=== PATIENT | female | born 1945 | race Caucasian/White ===

== ENCOUNTER 2017-09-17 05:57 | Inpatient (IN) | payer OTHER, BC ==
[2017-09-09 13:23] VITALS: BMI 33.1
[2017-09-17] MEDS ORDERED: TRANEXAMIC ACID 1000 MG/10 ML VIAL IVPUSH ONE (06:18)
[2017-09-17] MEDS ORDERED: oxyCODONE HCL 10 MG SUSTAINED ACTING TABLET PO ONE (06:18)
[2017-09-17] MEDS ORDERED: ROPIVICAINE 0.2%/MORPH PF/KETOROLAC - 51ML DISP.SYRINGE IA ONE (06:18)
[2017-09-17] MEDS ORDERED: MIDAZOLAM HCL 2 MG/2 ML SINGLE DOSE VIAL ONE ×2 (06:46→08:10)
[2017-09-17] MEDS ORDERED: SODIUM CHLORIDE 0.9% P/F 10 ML VIAL IJ ONE (06:47)
[2017-09-17] MEDS ORDERED: BUPIVACAINE LIPOSOME/PF (EXPAREL) 266 MG/20 ML VIAL ONE (06:47)
[2017-09-17] MEDS ORDERED: BUPIVACAINE HCL/PF (5 MG/ML) 30 ML VIAL IJ ONE (06:47)
--- NOTE | 2017-09-17 07:09 | HP ---
History & Physical Update - History History: No Change - Physical Physical: No Change - Assessment Assessment: No Change - Plan Plan: No Change (Initial H&P is located in patient's paper chart. Her today for elective bilateral knee replacements (primary OA). No new complaints or medications since completing H&P.)
[2017-09-17] MEDS ORDERED: PROPOFOL 20 ML ONE ×6 (08:46→12:08)
[2017-09-17] MEDS ORDERED: ePHEDrine SULFATE 50 MG/1 ML AMPULE ONE (11:54)
[2017-09-17] MEDS ORDERED: TRANEXAMIC ACID 1000 MG/10 ML VIAL ONE ×2 (12:38)
--- NOTE | 2017-09-17 13:41 | OP ---
Operative Note - Note: Operative Date: 09/17/17 Pre-Operative Diagnosis: Osteoarthritis Operation: SILVIA bilateral knee replacements Post-Operative Diagnosis: Same as Pre-op Surgeon: Jean-Pierre Huddleston Veterinary Physiologist: Yonatan Flores Anesthesia: Spinal Estimated Blood Loss (mls): 100 Drains & Tubes with Location: hemovac x2 Drains, Volume Out (mls): 400 (marquis) Fluid Volume Replaced (mls): 2,300 Operative Report Dictated: Yes
[2017-09-17] MEDS ORDERED: ONDANSETRON 4 MG/2 ML VIAL IVPUSH PRN ×2 (13:43→13:50)
[2017-09-17] MEDS ORDERED: MAG HYDROX/AL HYDROX/SIMETH 30 ML UNIT-DOSE CUP PO PRN (13:43)
--- NOTE | 2017-09-17 13:43 | SURG ---
Surgery Exhibitions And Collections Manager Note Exhibitions And Collections Manager: Yonatan Flores PA-C Date of Service: 09/17/17 Diagnosis: Osteoarthritis Procedure: Bo bilateral total knee replacements I was present for the entirety of the operative procedure. For further detail, please refer to operative report. Visit type - Case Type Case Type: Scheduled - New patient This patient is new to me today: Yes Date on this admission: 09/17/17
[2017-09-17] MEDS ORDERED: LACTATED RINGERS SOLUTION 1,000 ML IV SCH (13:45)
[2017-09-17] MEDS ORDERED: oxyCODONE HCL 5 MG TABLET PO PRN (13:51)
[2017-09-17] MEDS ORDERED: ACETAMINOPHEN 325 MG TABLET (FP) PO ONE (14:30)
[2017-09-17] MEDS: ACETAMINOPHEN 1000 MG/100 ML VIAL (NON FORMULARY) IVPB SCH ×2 (16:44→21:00)
[2017-09-17] MEDS: CEFAZOLIN 2 GM/D5W 2 GM/50 ML ML IVPB SCH (18:12)
[2017-09-17] MEDS ORDERED: ACETAMINOPHEN 325 MG TABLET (FP) PO SCH (18:30)
--- NOTE | 2017-09-17 20:56 | OP ---
DATE OF OPERATION: 09/17/2017 PREOPERATIVE DIAGNOSIS: Bilateral knee arthritis. POSTOPERATIVE DIAGNOSIS: Bilateral knee arthritis. OPERATION PERFORMED: Bilateral total knee arthroplasty with SILVIA assistance. SURGEON: Jean-Pierre Ewing MD ASSURANCE SPECIALIST: MARISEL Tam TYPE OF ANESTHESIA: Spinal and block. DISPOSITION: Patient returned to the recovery room in stable condition. COMPONENTS USED: On both sides, we used a size 4 Sondra Triathlon femur, a size 4 Benjamin Triathlon universal tibia, and a 29-mm patella. On the left side, we used an 11-mm PS insert, and on the right side, we used a 9-mm PS insert. DRAINS PLACED: One Hemovac each side. ESTIMATED BLOOD LOSS: Less than 50 mL each side. TOTAL TOURNIQUET TIME: On the left was 119 minutes; on the right was 110 minutes. PREOPERATIVE CONTRACTURE: 10 degrees on both sides. FINDINGS: Severe end-stage arthritis. INDICATIONS: Patient failed nonoperative treatment for bilateral knee arthritis and was indicated for bilateral total knee replacement. Preoperatively in the waiting area as well as in the operative site, a long discussion with the patient regarding the plan, the expected outcome, and the risks, benefits, and alternatives of surgery. The risks included, but were not limited to infection which may require future surgery and removal of implants, bleeding which may require transfusion, damage to nerves, arteries, veins, tendons, muscles, and other adjacent structures leading to possible numbness, weakness, decreased function and/or possible need for surgical repair. Also discussed were the possibility of intraoperative and postoperative fractures, implant loosening, stiffness, need for extensive therapy, and need for revision for a variety of reasons. We also discussed blood clots and other possible medical complications. We also discussed that doing both knees at the same time places her at increased risk for several complications including blood clots, bleeding, needing for transfusion, and difficult recovery. All questions were answered, and consent was obtained. PROCEDURE IN DETAIL: Patient was taken to the operating room and placed on the operating table in the supine position. Following induction of spinal anesthesia, well-padded tourniquets were placed high on both sides, and both lower extremities were prepped and draped in a sterile fashion. A timeout was performed that confirmed the correct sides, verified that the sites were marked, and confirmed the correct patient and procedures to be performed, as well that the patient received the appropriate preoperative antibiotics and tranexamic acid and was registered in the [employer] robot. The identical procedure was performed on both sides, only difference being the tourniquet times noted above and the insert sides noted above. Tourniquet was elevated, followed by a midline incision and a medial parapatellar arthrotomy. The checkpoints were placed in the femur and tibia through stab incisions, and after blunt dissection, the arrays were placed on the tibia and the femur. The patient was then verified and registered in the computer. The plan was adjusted according to patient's anatomy and alignment, and we then made all of our cuts using the [employer] robot while protecting the surrounding soft tissues. A laminar bisque ware dipper was placed sequentially in the medial and lateral joint spaces. Posterior osteophytes, cruciate ligaments, and menisci were all excised. We then placed trials of our final sizes after cutting the box, and there was good stability, range of motion, soft tissue tension, and patellar tracking with our trials of our final sizes. We then measured the patella on both sides to be 23. We cut off 8.25 using a guide. We reconstructed both patella with a 29-mm button and performed lateral double cuts. When the patella trial was in place, the patellar tracked centrally. There was good stability, soft tissue tension, and range of motion, and we verified our final alignment in accordance with our preoperative plan with the robot. The tibia was punched, and the trials were then removed. The wound was copiously irrigated, and sequential cementation was performed starting with the tibia and then the femur. Excess cement was removed. We inserted the final polyethylene, and it seated flush. The knee was brought to full extension to allow the cement to harden. We made sure excess cement was removed. After a 3-minute soak with a diluted Betadine solution, the knee was copiously irrigated. Our injection was then injected. A deep drain was placed. We checked for excess cement. The arthrotomy was closed with number 1 Vicryl and 0 V-Loc. With the arthrotomy closed, there was good stability, range of motion, soft tissue tension, and the patella tracked centrally. An anesthetic cocktail had already been injected. Next, 2-0 Vicryl and saeed were used for the skin. The knee was wrapped in a dry, sterile compressive dressing. The tourniquet was released. Compartments were soft at the end of the procedure. Pulses were palpated, and the patient was returned to the recovery room in stable condition, will be mobilized weightbearing as tolerated. WOUND CLASSIFICATION: Clean. SPECIMENS: Bone. COMPLICATIONS: None known. Of note, we removed the checkpoints and arrays prior to closure. JEAN-PIERRE EWING M.D. [facility]/[id number]
[2017-09-17] MEDS: ATORVASTATIN CA 10 MG TABLET (FP) PO SCH (21:28)
[2017-09-17] MEDS: GABAPENTIN 300 MG CAPSULE (FP) PO SCH (21:28)
[2017-09-17] MEDS: ASPIRIN 325 MG TABLET PO SCH (21:28)
[2017-09-17] MEDS: ACETAMINOPHEN 325 MG TABLET (FP) PO SCH (21:28)
[2017-09-17] MEDS: ASCORBIC ACID 500 MG TABLET (FP) PO SCH (21:28)
[2017-09-17] MEDS: LISINOPRIL 20 MG TABLET (FP) PO SCH (21:28)
[2017-09-17] MEDS: HYDROCHLOROTHIAZIDE 12.5 MG CAPSULE (FP) PO SCH (21:28)
[2017-09-17] MEDS: SENNOSIDES/DOCUSATE COMBO (SENNA PLUS) TABLET (UD) PO SCH (21:28)
[2017-09-17] MEDS: oxyCODONE HCL 10 MG SUSTAINED ACTING TABLET PO SCH (21:29)
[2017-09-17] MEDS ORDERED: ENOXAPARIN NA (PORCINE) 30 MG/0.3 ML DISP.SYRIN SQ SCH (22:00)
[2017-09-17] MEDS ORDERED: PATIENT'S OWN MEDICATION (NON-FORMULARY) (Lisinopril/Hydrochlorothiazide [Lisinopril-Hctz PO SCH (22:00)
[2017-09-18] MEDS: CEFAZOLIN 2 GM/D5W 2 GM/50 ML ML IVPB SCH (00:20)
[2017-09-18] MEDS: ACETAMINOPHEN 1000 MG/100 ML VIAL (NON FORMULARY) IVPB SCH (03:30)
[2017-09-18] MEDS: ACETAMINOPHEN 325 MG TABLET (FP) PO SCH ×4 (03:30→21:31)
[2017-09-18] MEDS ORDERED: LEVOTHYROXINE NA 112 MCG TABLET (FP) ONE (07:15)
[2017-09-18] MEDS ORDERED: LEVOTHYROXINE NA 25 MCG TABLET (FP) ONE (07:15)
[2017-09-18] MEDS: LEVOTHYROXINE 112 MCG, LEVOTHYROXINE 25 MCG PO SCH (07:19)
--- NOTE | 2017-09-18 08:05 | PN ---
Progress Note (short form) - Note Progress Note: Patient seen and examined. No acute events. Pain controlled. Vitals reviewed and stable No acute distress A and Ox3 BL drains removed by me Dressings dry compartments soft NVID A/P: POD#1 s/p bl tka -dvt proph w asa and mechanical -pt/ot wbat -pain control -dispo: likely Acute rehab at [place] wednesday if approved.
[2017-09-18 08:11] LABS: HEMOGLOBIN 9.6 GM/dl (10.7-15.3); MCH 32.1 pg (25.7-33.7); MCHC 34.3 g/dl (32.0-36.0); MEAN CELL VOLUME 93.6 fl (80-96); MEAN PLT VOLUME 7.2 fl (7.5-11.1); PLATELET COUNT 190 K/MM3 (134-434); RBC 2.99 M/mm3 (3.60-5.2); RDW 13.7 % (11.6-15.6); WHITE BLOOD COUNT 6.8 K/mm3 (4.0-10.8)
[2017-09-18 08:39] LABS: ANION GAP 8 (8-16); BLOOD UREA NITROGEN 24 mg/dl (7-18); CALCIUM 8.1 mg/dl (8.4-10.2); CHLORIDE 99 mmol/L (98-107); CO2 25 mmol/L (22-28); CREATININE 0.9 mg/dl (0.6-1.3); GLUCOSE,RANDOM 152 mg/dl (74-106); POTASSIUM 3.7 mmol/L (3.5-5.1); SODIUM 132 mmol/L (136-145)
[2017-09-18 09:47] LABS: BASO % 0.2 % (0-2.0); EOS % 0.9 % (0-4.5); HEMATOCRIT 27.4 % (32.4-45.2); HEMOGLOBIN 9.6 GM/dl (10.7-15.3); MCH 32.5 pg (25.7-33.7); MCHC 34.9 g/dl (32.0-36.0); MEAN CELL VOLUME 93.1 fl (80-96); MEAN PLT VOLUME 8.3 fl (7.5-11.1); NEUT % 77.9 % (42.8-82.8); PLATELET COUNT 184 K/MM3 (134-434); RBC 2.94 M/mm3 (3.60-5.2); WHITE BLOOD COUNT 6.9 K/mm3 (4.0-10.8)
[2017-09-18 09:52] LABS: ALBUMIN 3.2 g/dl (3.5-5.0); ALK PHOS 47 U/L (32-92); ANION GAP 9 (8-16); BILIRUBIN,TOTAL 0.6 mg/dl (0.2-1.0); BLOOD UREA NITROGEN 23 mg/dl (7-18); CHLORIDE 99 mmol/L (98-107); CO2 24 mmol/L (22-28); CREATININE 0.9 mg/dl (0.6-1.3); GLUCOSE,RANDOM 150 mg/dl (74-106); MAGNESIUM 1.6 mg/dL (1.8-2.4); POTASSIUM 3.8 mmol/L (3.5-5.1); SGOT/AST 24 U/L (10-42); SGPT/ALT 19 U/L (10-40); SODIUM 132 mmol/L (136-145); TOT PROT 5.1 g/dl (6.4-8.3)
[2017-09-18] MEDS ORDERED: MULTIVITAMINS (DAILY MVI) TABLET (FP) PO SCH (10:00)
[2017-09-18] MEDS ORDERED: PATIENT'S OWN MEDICATION (NON-FORMULARY) (Levothyroxine Sodium [Synthroid] 137 MCG) PO SCH (10:00)
[2017-09-18] MEDS: ASPIRIN 325 MG TABLET PO SCH ×2 (10:03→21:32)
[2017-09-18] MEDS: CELECOXIB 200 MG CAPSULE PO SCH (10:03)
[2017-09-18] MEDS: oxyCODONE HCL 10 MG SUSTAINED ACTING TABLET PO SCH ×2 (10:04→21:33)
[2017-09-18] MEDS: HYDROCHLOROTHIAZIDE 12.5 MG CAPSULE (FP) PO SCH ×2 (10:04→21:32)
[2017-09-18] MEDS: LISINOPRIL 20 MG TABLET (FP) PO SCH ×2 (10:04→21:32)
[2017-09-18] MEDS: SENNOSIDES/DOCUSATE COMBO (SENNA PLUS) TABLET (UD) PO SCH ×2 (10:04→21:33)
[2017-09-18] MEDS: GABAPENTIN 300 MG CAPSULE (FP) PO SCH ×2 (10:04→21:32)
[2017-09-18] MEDS: PANTOPRAZOLE 40 MG TABLET (FP) PO SCH (10:05)
[2017-09-18] MEDS: oxyCODONE HCL 5 MG TABLET PO PRN (10:05)
[2017-09-18] MEDS: MULTIVITAMINS (DAILY MVI) TABLET (FP) PO SCH (10:05)
[2017-09-18] MEDS: ASCORBIC ACID 500 MG TABLET (FP) PO SCH ×2 (10:06→21:32)
[2017-09-18] MEDS: CHOLECALCIFEROL (VITAMIN D3) 1,000 UNIT TABLET (FP) PO SCH (10:06)
[2017-09-18] MEDS ORDERED: MAGNESIUM OXIDE 400 MG TABLET (FP) PO ONE (11:10)
--- NOTE | 2017-09-18 11:10 | PN ---
Physical Exam: SUBJECTIVE: Patient seen and examined at the bedside. In no acute distress OBJECTIVE: Vital Signs Period Temp Pulse Resp BP Sys/Machuca Pulse Ox Last 24 Hr 93.9 F-98.1 F 56-71 16-18 93-136/46-66 98-100 GENERAL: The patient is awake, alert, and fully oriented, in no acute distress. HEAD: Normal with no signs of trauma. EYES: PERRL, extraocular movements intact, sclera anicteric, conjunctiva clear. No ptosis. ENT: Ears normal, nares patent, oropharynx clear without exudates, moist mucous membranes. NECK: Trachea midline, full range of motion, supple. LUNGS: Breath sounds equal, clear to auscultation bilaterally, no wheezes, no crackles, no accessory muscle use. HEART: Regular rate and rhythm ABDOMEN: Soft, nontender, nondistended, normoactive bowel sounds, no guarding EXTREMITIES: She is POD #1 for bilateral TKA. She is awaiting rehab at [facility]. NEUROLOGICAL: Cranial nerves II through XII grossly intact. Normal speech, gait not observed. PSYCH: Normal mood, normal affect. SKIN: Warm, dry, normal turgor, no rashes or lesions noted Laboratory Results - last 24 hr 09/18/17 09/18/17 09/18/17 08:00 08:00 09:30 WBC 6.8 6.9 RBC 2.99 L 2.94 L Hgb 9.6 L 9.6 L Hct 28.0 L 27.4 L MCV 93.6 93.1 MCH 32.1 32.5 MCHC 34.3 34.9 RDW 13.7 13.0 Plt Count 190 184 MPV 7.2 L 8.3 Neutrophils % 77.9 Lymphocytes % 12.0 Monocytes % 9.0 Eosinophils % 0.9 Basophils % 0.2 Sodium 132 L Potassium 3.7 Chloride 99 Carbon Dioxide 25 Anion Gap 8 BUN 24 H Creatinine 0.9 Creat Clearance w eGFR Random Glucose 152 H Calcium 8.1 L Magnesium Total Bilirubin AST ALT Alkaline Phosphatase Total Protein Albumin 09/18/17 09:30 WBC RBC Hgb Hct MCV MCH MCHC RDW Plt Count MPV Neutrophils % Lymphocytes % Monocytes % Eosinophils % Basophils % Sodium 132 L Potassium 3.8 Chloride 99 Carbon Dioxide 24 Anion Gap 9 BUN 23 H Creatinine 0.9 Creat Clearance w eGFR > 60 Random Glucose 150 H Calcium 8.0 L Magnesium 1.6 L Total Bilirubin 0.6 AST 24 ALT 19 Alkaline Phosphatase 47 Total Protein 5.1 L Albumin 3.2 L Active Medications Generic Name Dose Route Start Last Admin Trade Name Freq PRN Reason Stop Dose Admin Acetaminophen 650 mg 09/17/17 20:30 09/18/17 08:30 Tylenol - PO 650 mg Q6H JERMAINE Administration Al Hydroxide/Mg Hydroxide 30 ml 09/17/17 13:43 Mylanta Oral Suspension - PO Q4H PRN DYSPEPSIA Ascorbic Acid 500 mg 09/17/17 22:00 09/18/17 10:06 Vitamin C - PO 500 mg BID JERMAINE Administration Aspirin 325 mg 09/17/17 22:00 09/18/17 10:03 Asa - PO 325 mg BID JERMAINE Administration Atorvastatin Calcium 10 mg 09/17/17 22:00 09/17/17 21:28 Lipitor - PO 10 mg HS JERMAINE Administration Celecoxib 200 mg 09/18/17 10:00 09/18/17 10:03 Celebrex - PO 200 mg DAILY JERMAINE Administration Cholecalciferol 2,000 unit 09/18/17 10:00 09/18/17 10:06 Vitamin D3 - PO 2,000 unit DAILY JERMAINE Administration Fentanyl 50 mcg 09/17/17 13:50 Sublimaze Injection - IVPUSH [id number] PRN PAIN-PACU ORDER X 4 DOSES ONLY Gabapentin 300 mg 09/17/17 22:00 09/18/17 10:04 Neurontin - PO 300 mg BID JERMAINE Administration Hydrochlorothiazide 12.5 mg 09/17/17 22:00 09/18/17 10:04 Hctz - PO 12.5 mg BID JERMAINE Administration Levothyroxine Sodium 112 mcg/ 137 mcg 09/18/17 07:00 09/18/17 07:19 Levothyroxine Sodium 25 mcg PO 137 mcg DAILY@0700 JERMAINE Administration Lisinopril 20 mg 09/17/17 22:00 09/18/17 10:04 Prinivil PO 20 mg BID JERMAINE Administration Metoprolol Succinate 50 mg 09/18/17 10:00 09/18/17 10:05 Toprol Xl - PO 50 mg DAILY JERMAINE Administration Multivitamins/Minerals/Vitamin C 1 tab 09/18/17 10:00 09/18/17 10:05 Tab-A-Vit - PO 1 tab DAILY JERMAINE Administration Ondansetron HCl 4 mg 09/17/17 13:43 Zofran Injection IVPUSH Q6H PRN NAUSEA Oxycodone HCl 5 mg 09/17/17 13:51 09/18/17 10:05 Roxicodone - PO 5 mg Q3H PRN Administration PAIN LEVEL 1-5 Oxycodone HCl 10 mg 09/17/17 13:51 Roxicodone - PO Q3H PRN PAIN LEVEL 6-10 Oxycodone HCl 10 mg 09/17/17 22:00 09/18/17 10:04 Oxycontin - PO 09/20/17 13:52 10 mg BID JERMAINE Administration Pantoprazole Sodium 40 mg 09/18/17 10:00 09/18/17 10:05 Protonix - PO 40 mg DAILY JERMAINE Administration Senna/Docusate Sodium 1 tablet 09/17/17 22:00 09/18/17 10:04 Pericolace - PO 1 tablet BID JERMAINE Administration ASSESSMENT/PLAN: Patient is a 72 year old female with a significant past medical history of hypertension, hyperthyroidism, hypercholesteroemia. She is POD #1 for bilateral TKA. She is awaiting rehab at [facility]. Ortho: Bilateral TKA POD #1 Physical therapy Surgery follow up Monitor pain Bowel regimen Hypertension, controlled Toprol, HCTZ, Lisinopril Hyperthyroidism, chronic Synthroid F.E.N: Fluids: tolerating PO Electrolytes: hypomagnesium, repleted Nutrition: low salt
[2017-09-18] MEDS: ATORVASTATIN CA 10 MG TABLET (FP) PO SCH (21:32)
[2017-09-19] MEDS ORDERED: LEVOTHYROXINE NA 112 MCG TABLET (FP) ONE (06:05)
[2017-09-19] MEDS ORDERED: LEVOTHYROXINE NA 25 MCG TABLET (FP) ONE (06:05)
[2017-09-19] MEDS: LEVOTHYROXINE 112 MCG, LEVOTHYROXINE 25 MCG PO SCH (06:08)
[2017-09-19] MEDS: ACETAMINOPHEN 325 MG TABLET (FP) PO SCH ×4 (06:08→21:44)
--- NOTE | 2017-09-19 08:46 | PN ---
Physical Exam: SUBJECTIVE: Patient seen and examined Pt reports bilateral knee pain well controlled with pain meds. OBJECTIVE: Vital Signs Period Temp Pulse Resp BP Sys/Machuca Pulse Ox Last 24 Hr 98.0 F-98.3 F 74-81 16-18 90-104/47-49 95-99 GENERAL: The patient is awake, alert, and fully oriented, in no acute distress, OOB HEAD: Normal with no signs of trauma. EYES: PERRL, extraocular movements intact, sclera anicteric, conjunctiva clear. No ptosis. ENT: Ears normal, nares patent, oropharynx clear without exudates, moist mucous membranes. NECK: Trachea midline, full range of motion, supple. LUNGS: Breath sounds equal, clear to auscultation bilaterally, no wheezes, no crackles, no accessory muscle use. HEART: Regular rate and rhythm, S1, S2 without murmur, rub or gallop. ABDOMEN: Soft, non-tender, non-distended, normoactive bowel sounds, no guarding , no rebound, no hepatosplenomegaly, no masses. EXTREMITIES: 2+ pulses, warm, well-perfused, no edema, s/p bilateral knee replacement,dsg intact NEUROLOGICAL: Cranial nerves II through XII grossly intact. Normal speech, gait not observed. PSYCH: Normal mood, normal affect. SKIN: Warm, dry, normal turgor, no rashes or lesions noted Laboratory Results - last 24 hr 09/18/17 09/18/17 09/18/17 08:00 09:30 09:30 WBC 6.9 RBC 2.94 L Hgb 9.6 L Hct 27.4 L MCV 93.1 MCH 32.5 MCHC 34.9 RDW 13.0 Plt Count 184 MPV 8.3 Neutrophils % 77.9 Lymphocytes % 12.0 Monocytes % 9.0 Eosinophils % 0.9 Basophils % 0.2 Sodium 132 L 132 L Potassium 3.7 3.8 Chloride 99 99 Carbon Dioxide 25 24 Anion Gap 8 9 BUN 24 H 23 H Creatinine 0.9 0.9 Creat Clearance w eGFR > 60 Random Glucose 152 H 150 H Calcium 8.1 L 8.0 L Magnesium 1.6 L Total Bilirubin 0.6 AST 24 ALT 19 Alkaline Phosphatase 47 Total Protein 5.1 L Albumin 3.2 L Active Medications Generic Name Dose Route Start Last Admin Trade Name Freq PRN Reason Stop Dose Admin Acetaminophen 650 mg 09/17/17 20:30 09/19/17 06:08 Tylenol - PO 650 mg Q6H JERMAINE Administration Al Hydroxide/Mg Hydroxide 30 ml 09/17/17 13:43 Mylanta Oral Suspension - PO Q4H PRN DYSPEPSIA Ascorbic Acid 500 mg 09/17/17 22:00 09/18/17 21:32 Vitamin C - PO 500 mg BID JERMAINE Administration Aspirin 325 mg 09/17/17 22:00 09/18/17 21:32 Asa - PO 325 mg BID JERMAINE Administration Atorvastatin Calcium 10 mg 09/17/17 22:00 09/18/17 21:32 Lipitor - PO 10 mg HS JERMAINE Administration Celecoxib 200 mg 09/18/17 10:00 09/18/17 10:03 Celebrex - PO 200 mg DAILY JERMAINE Administration Cholecalciferol 2,000 unit 09/18/17 10:00 09/18/17 10:06 Vitamin D3 - PO 2,000 unit DAILY JERMAINE Administration Fentanyl 50 mcg 09/17/17 13:50 Sublimaze Injection - IVPUSH [id number] PRN PAIN-PACU ORDER X 4 DOSES ONLY Gabapentin 300 mg 09/17/17 22:00 09/18/17 21:32 Neurontin - PO 300 mg BID JERMAINE Administration Hydrochlorothiazide 12.5 mg 09/17/17 22:00 09/18/17 21:32 Hctz - PO 12.5 mg BID JERMAINE Administration Levothyroxine Sodium 112 mcg/ 137 mcg 09/18/17 07:00 09/19/17 06:08 Levothyroxine Sodium 25 mcg PO 137 mcg DAILY@0700 JERMAINE Administration Lisinopril 20 mg 09/17/17 22:00 09/18/17 21:32 Prinivil PO 20 mg BID JERMAINE Administration Metoprolol Succinate 50 mg 09/18/17 10:00 09/18/17 10:05 Toprol Xl - PO 50 mg DAILY JERMAINE Administration Multivitamins/Minerals/Vitamin C 1 tab 09/18/17 10:00 09/18/17 10:05 Tab-A-Vit - PO 1 tab DAILY JERMAINE Administration Ondansetron HCl 4 mg 09/17/17 13:43 Zofran Injection IVPUSH Q6H PRN NAUSEA Oxycodone HCl 5 mg 09/17/17 13:51 09/18/17 10:05 Roxicodone - PO 5 mg Q3H PRN Administration PAIN LEVEL 1-5 Oxycodone HCl 10 mg 09/17/17 13:51 Roxicodone - PO Q3H PRN PAIN LEVEL 6-10 Oxycodone HCl 10 mg 09/17/17 22:00 09/18/17 21:33 Oxycontin - PO 09/20/17 13:52 10 mg BID JERMAINE Administration Pantoprazole Sodium 40 mg 09/18/17 10:00 09/18/17 10:05 Protonix - PO 40 mg DAILY JERMAINE Administration Senna/Docusate Sodium 1 tablet 09/17/17 22:00 09/18/17 21:33 Pericolace - PO 1 tablet BID JERMAINE Administration ASSESSMENT/PLAN: Patient is a 72 year old female with a significant past medical history of hypertension, hyperthyroidism, hypercholesteroemia, s/p bilateral lbee replacement, POD #2. Ortho: * S/p bilateral TKA POD #2 Physical therapy sx following pain control Bowel regimen *Hypertension,- BP controlled - will cont on Toprol, HCTZ, Lisinopril *Hyperthyroidism, chronic - will cont on Synthroid * HDL- will cotn on Statin * Electrolytes imbalance - will f/u NA, mg levels * Anemia ? chronic - will f/u on CBC - will check Fe studies - stool OB *F.E.N: Fluids: tolerating PO Nutrition: low salt Dispo: Awaiting for rehab at [facility], likely tomorrow. Visit type - Emergency Visit Emergency Visit: Yes ED Registration Date: 09/17/17 Care time: The patient presented to the Emergency Department on the above date and was hospitalized for further evaluation of their emergent condition. - New Patient This patient is new to me today: Yes Date on this admission: 09/19/17 - Critical Care Critical Care patient: No
--- NOTE | 2017-09-19 09:29 | PN ---
Progress Note (short form) - Note Progress Note: Patient seen and examined. No acute events. Pain controlled. Vitals and labs reviewed and stable No acute distress A and Ox3 Dressings dry compartments soft NVID A/P: POD#2 s/p bl tka -dvt proph w asa and mechanical -pt/ot wbat -pain control -dispo: likely Acute rehab at [facility] wednesday if approved.
[2017-09-19 09:39] LABS: ALBUMIN 2.9 g/dl (3.5-5.0); ALK PHOS 50 U/L (32-92); ANION GAP 8 (8-16); BILIRUBIN,TOTAL 0.5 mg/dl (0.2-1.0); BLOOD UREA NITROGEN 20 mg/dl (7-18); CALCIUM 7.9 mg/dl (8.4-10.2); CHLORIDE 100 mmol/L (98-107); CO2 27 mmol/L (22-28); CREATININE 0.9 mg/dl (0.6-1.3); GLUCOSE,RANDOM 117 mg/dl (74-106); MAGNESIUM 1.8 mg/dL (1.8-2.4); POTASSIUM 3.7 mmol/L (3.5-5.1); SGOT/AST 21 U/L (10-42); SGPT/ALT 14 U/L (10-40); SODIUM 135 mmol/L (136-145); TOT PROT 5.1 g/dl (6.4-8.3)
[2017-09-19 09:49] LABS: BASO % 0.4 % (0-2.0); EOS % 0.4 % (0-4.5); HEMATOCRIT 26.1 % (32.4-45.2); LYMPH % 13.2 % (8-40); MCH 32.2 pg (25.7-33.7); MCHC 34.6 g/dl (32.0-36.0); MEAN PLT VOLUME 8.6 fl (7.5-11.1); MONO % 9.2 % (3.8-10.2); NEUT % 76.8 % (42.8-82.8); PLATELET COUNT 211 K/MM3 (134-434); RBC 2.81 M/mm3 (3.60-5.2); RDW 13.1 % (11.6-15.6); WHITE BLOOD COUNT 8.9 K/mm3 (4.0-10.8)
[2017-09-19] MEDS: oxyCODONE HCL 10 MG SUSTAINED ACTING TABLET PO SCH ×2 (10:06→21:44)
[2017-09-19] MEDS: SENNOSIDES/DOCUSATE COMBO (SENNA PLUS) TABLET (UD) PO SCH ×2 (10:06→21:44)
[2017-09-19] MEDS: CELECOXIB 200 MG CAPSULE PO SCH (10:06)
[2017-09-19] MEDS: MULTIVITAMINS (DAILY MVI) TABLET (FP) PO SCH (10:06)
[2017-09-19] MEDS: ASPIRIN 325 MG TABLET PO SCH ×2 (10:06→21:44)
[2017-09-19] MEDS: PANTOPRAZOLE 40 MG TABLET (FP) PO SCH (10:06)
[2017-09-19] MEDS: GABAPENTIN 300 MG CAPSULE (FP) PO SCH ×2 (10:06→21:44)
[2017-09-19] MEDS: LISINOPRIL 20 MG TABLET (FP) PO SCH ×2 (10:06→21:44)
[2017-09-19] MEDS: HYDROCHLOROTHIAZIDE 12.5 MG CAPSULE (FP) PO SCH ×2 (10:06→21:44)
[2017-09-19] MEDS: CHOLECALCIFEROL (VITAMIN D3) 1,000 UNIT TABLET (FP) PO SCH (10:07)
[2017-09-19] MEDS: ASCORBIC ACID 500 MG TABLET (FP) PO SCH ×2 (10:07→21:44)
[2017-09-19] MEDS: ATORVASTATIN CA 10 MG TABLET (FP) PO SCH (21:44)
[2017-09-20] MEDS: ACETAMINOPHEN 325 MG TABLET (FP) PO SCH ×3 (02:08→15:32)
[2017-09-20] MEDS ORDERED: LEVOTHYROXINE NA 112 MCG TABLET (FP) ONE (06:17)
[2017-09-20] MEDS ORDERED: LEVOTHYROXINE NA 25 MCG TABLET (FP) ONE (06:17)
[2017-09-20] MEDS: LEVOTHYROXINE 112 MCG, LEVOTHYROXINE 25 MCG PO SCH (06:19)
[2017-09-20] MEDS: oxyCODONE HCL 5 MG TABLET PO PRN (06:19)
[2017-09-20] MEDS: ASPIRIN 325 MG TABLET PO SCH (09:42)
[2017-09-20] MEDS: CELECOXIB 200 MG CAPSULE PO SCH (09:42)
[2017-09-20] MEDS: CHOLECALCIFEROL (VITAMIN D3) 1,000 UNIT TABLET (FP) PO SCH (09:42)
[2017-09-20] MEDS: PANTOPRAZOLE 40 MG TABLET (FP) PO SCH (09:43)
[2017-09-20] MEDS: ASCORBIC ACID 500 MG TABLET (FP) PO SCH (09:43)
[2017-09-20] MEDS: MULTIVITAMINS (DAILY MVI) TABLET (FP) PO SCH (09:43)
[2017-09-20] MEDS: SENNOSIDES/DOCUSATE COMBO (SENNA PLUS) TABLET (UD) PO SCH (09:43)
[2017-09-20] MEDS: GABAPENTIN 300 MG CAPSULE (FP) PO SCH (09:43)
[2017-09-20] MEDS: HYDROCHLOROTHIAZIDE 12.5 MG CAPSULE (FP) PO SCH (09:44)
[2017-09-20] MEDS: LISINOPRIL 20 MG TABLET (FP) PO SCH (09:49)
[2017-09-20] MEDS: oxyCODONE HCL 10 MG SUSTAINED ACTING TABLET PO SCH (09:49)
--- NOTE | 2017-09-20 10:13 | PN ---
Progress Note (short form) - Note Progress Note: Patient Seen. POD# 3 after Bilat TKR Bo under spinal anesthesia + Bilat Adductor canal and selective Tibial nerve blocks. NRS pain at 2-3/10. No sig N/V /pruritis/sedation. Tolerting po analgesics and PT well. No complaints or obvious complications. Likely d/c to [facility] for rehab later today. Please recall prn.
--- NOTE | 2017-09-20 10:15 | DS ---
Physical Exam: SUBJECTIVE: Patient seen and examined, patient exam was very throughout nurses station with physical therapy and walker reports feeling well denies any paresthesia to the lower extremities patient denies any dizziness chest pain or shortness of breath OBJECTIVE patient is a 72-year-old female with a past medical history of hypertension, hypothyroidism, hypercholesteremia, and degenerative joint disease. Patient is status post bilateral knee replacement postoperative day 3, spinal anesthesia Dr. Hill. Vital Signs Period Temp Pulse Resp BP Sys/Machuca Pulse Ox Last 24 Hr 98.5 F-98.7 F 56-81 18-18 90-102/43-48 94-94 PHYSICAL EXAM GENERAL: The patient is awake, alert, and fully oriented, in no acute distress. HEAD: Normal with no signs of trauma. EYES: PERRL, extraocular movements intact, sclera anicteric, conjunctiva clear. ENT: Ears normal, nares patent, oropharynx clear without exudates, moist mucous membranes. NECK: Trachea midline, full range of motion, supple. LUNGS: Breath sounds equal, clear to auscultation bilaterally, no wheezes, no crackles, no accessory muscle use. HEART: Regular rate and rhythm, S1, S2 without murmur, rub or gallop. ABDOMEN: Soft, nontender, nondistended, normoactive bowel sounds, no guarding, no rebound, no hepatosplenomegaly, no masses. EXTREMITIES: 2+ pulses, warm, well-perfused, no edema. LEFT LOWER EXTREMITY: Aquacel dressing, dried blood noted, less than 3 second capillary refill +3 pedal Pulse, scd/candelario RIGHT LOWER EXTREMITY: Aguacel dressing, dried blood noted, less than 3 second capillary refill +3 pedal pulse, SCD/Candelario NEUROLOGICAL: Cranial nerves II through XII grossly intact. Normal speech, gait not observed. PSYCH: Normal mood, normal affect. SKIN: Warm, dry, normal turgor, no rashes or lesions noted. LABS Laboratory Results - last 24 hr 09/19/17 06:00 Ferritin 200.284 CBC WBC 8.9 K/mm3 (4.0-10.8) 09/19/17 06:45 RBC 2.81 M/mm3 (3.60-5.2) L 09/19/17 06:45 Hgb 9.0 GM/dl (10.7-15.3) L 09/19/17 06:45 Hct 26.1 % (32.4-45.2) L 09/19/17 06:45 MCV 93.0 fl (80-96) 09/19/17 06:45 MCH 32.2 pg (25.7-33.7) 09/19/17 06:45 MCHC 34.6 g/dl (32.0-36.0) 09/19/17 06:45 RDW 13.1 % (11.6-15.6) 09/19/17 06:45 Plt Count 211 K/MM3 (134-434) 09/19/17 06:45 MPV 8.6 fl (7.5-11.1) 09/19/17 06:45 Neutrophils % 76.8 % (42.8-82.8) 09/19/17 06:45 Lymphocytes % 13.2 % (8-40) 09/19/17 06:45 Monocytes % 9.2 % (3.8-10.2) 09/19/17 06:45 Eosinophils % 0.4 % (0-4.5) 09/19/17 06:45 Basophils % 0.4 % (0-2.0) 09/19/17 06:45 CMP Sodium 135 mmol/L (136-145) L 09/19/17 07:00 Potassium 3.7 mmol/L (3.5-5.1) 09/19/17 07:00 Chloride 100 mmol/L (98-107) 09/19/17 07:00 Carbon Dioxide 27 mmol/L (22-28) 09/19/17 07:00 Anion Gap 8 (8-16) 09/19/17 07:00 BUN 20 mg/dl (7-18) H 09/19/17 07:00 Creatinine 0.9 mg/dl (0.6-1.3) 09/19/17 07:00 Creat Clearance w eGFR > 60 (>60) 09/19/17 07:00 Random Glucose 117 mg/dl (74-106) H D 09/19/17 07:00 Calcium 7.9 mg/dl (8.4-10.2) L 09/19/17 07:00 Magnesium 1.8 mg/dL (1.8-2.4) 09/19/17 07:00 Ferritin 200.284 ng/ml (6.9-282.5) 09/19/17 06:00 Total Bilirubin 0.5 mg/dl (0.2-1.0) 09/19/17 07:00 AST 21 U/L (10-42) 09/19/17 07:00 ALT 14 U/L (10-40) D 09/19/17 07:00 Alkaline Phosphatase 50 U/L (32-92) 09/19/17 07:00 Total Protein 5.1 g/dl (6.4-8.3) L 09/19/17 07:00 Albumin 2.9 g/dl (3.5-5.0) L 09/19/17 07:00 HOSPITAL COURSE: Patient was admitted to the medical surgical unit after bilateral total knee replacement, 09/16/2017. patient ambulated on postoperative day 1 with physical therapy, restortive services was recommended. bilateral drains removed by the orthopedist on 09/18/2017. hemoglobin 9.0 stable. patient has a past medical history of hypertension, BP labile, patient is asymptomatic, Toprol hydrochlorothiazide and lisinopril held. patient has a past medical history hypothyroidism,synthroid continued throughout admission. PLAN - transfer to [facility] for short term rehab Date of Admission:09/17/17 Date of Discharge: 09/20/17 Minutes to complete discharge: 45 Discharge Summary Reason For Visit: OSTEOARTHRITIS BILATERAL KNEE Condition: Improved - Instructions Diet, Activity, Other Instructions: Dr. Huddleston's - Knee Replacement Instructions See his instructions that will be printed out prior too your discharge. Referrals: Jean-Pierre Huddleston MD [Staff Physician] - Disposition: PHYSICAL REHABILATION FACILITY - Home Medications Comprehensive Discharge Medication List: Ambulatory Orders Ascorbic Acid [Vitamin C] 1,000 mg PO DAILY 09/09/17 Cholecalciferol (Vitamin D3) [Vitamin D3] 2,000 unit PO DAILY 09/09/17 Levothyroxine Sodium [Synthroid] 137 mcg PO DAILY 09/09/17 Lisinopril/Hydrochlorothiazide [Lisinopril-Hctz 20-12.5 mg Tab] 1 each PO BID Metoprolol Succinate [Toprol Xl] 50 mg PO DAILY 09/09/17 Multivit-Min/Iron/Folic/Lutein [Centrum Silver Women Tablet] 1 each PO DAILY Simvastatin 20 mg PO HS 09/09/17 Ubidecarenone/Vit E Acet [Co Q-10 100 mg Softgel] 1 each PO DAILY 09/09/17 This patient is new to me today: Yes Date on this admission: 09/20/17 Emergency Visit: No Critical Care patient: No - Discharge Referral Referred to [facility] No
[2017-09-20 14:18] VITALS: BP 92/40; PULSE 90; TEMP 98.1
[2017-09-20] MEDS ORDERED: SODIUM CHLORIDE 250 ML IV STA (14:33)
--- NOTE | 2017-09-22 16:16 | PATH ---
Surgical Pathology Report Patient Name: JELENA HURTADO Med. Rec. #: [id number] /Age/Gender: 1945 (Age: 72) / F Account: [id number] Location: [facility] Taken: 09/17/2017 Received: 09/17/2017 Reported: 09/22/2017 Physicians: Jean-Pierre Huddleston M.D. Specimen(s) Received A: LEFT KNEE BONE B: RIGHT KNEE BONE Clinical History Bilateral knees osteoarthritis Final Diagnosis A. LEFT KNEE BONE, RESECTION: DEGENERATIVE JOINT DISEASE, LEFT KNEE. B. RIGHT KNEE BONE, RESECTION: DEGENERATIVE JOINT DISEASE, RIGHT KNEE. Electronically Signed Donaldo Olivarez M.D. Gross Description A. Received in formalin labeled "left knee bone," is a 13.5 x 11.0 x 1.6 cm aggregate of multiple portions of bone and soft tissue. The tibial plateau measures 8.4 x 5.5 x 1.8 cm. There are multiple areas of eburnation present, measuring up to 1.4 cm in greatest dimension. The remaining articular surfaces are torres-yellow and diffusely granular. The underlying trabecular bone is yellow and hard. [employer] sections are submitted in one cassette, following decalcification. B. Received in formalin labeled "right knee bone," is a 13.0 x 10.0 x 2.5 cm aggregate of multiple portions of bone and soft tissue. The tibial plateau measures 8.0 x 5.4 x 1.5 cm. There are multiple areas of eburnation present, measuring up to 1.5 cm in greatest dimension. The remaining articular surfaces are torres-yellow and diffusely granular. The underlying trabecular bone is yellow and hard. [employer] sections are submitted in one cassette, following decalcification. /09/21/201709/21/2017
== END 2017-09-20 19:20 | DRG 462 ==
LOC: FM/S 05:57
PROVIDERS: ADMIT Internal Medicine; ATTEND Nurse Practitioner Family
PROC: 0SRC0J9 Replacement of Right Knee Joint with Synthetic Substitute, Cemented, Open Approach (ICD-10-PCS; 2017-09-17)
PROC: 8E0Y0CZ Robotic Assisted Procedure of Lower Extremity, Open Approach (ICD-10-PCS; 2017-09-17)
PROC: 0SRD0J9 Replacement of Left Knee Joint with Synthetic Substitute, Cemented, Open Approach (ICD-10-PCS; principal; 2017-09-17 08:00)
DX: M17.0 Bilateral primary osteoarthritis of knee (principal); E83.42 Hypomagnesemia; Z88.0 Allergy status to penicillin; I10 Essential (primary) hypertension; E78.00 Pure hypercholesterolemia, unspecified; D64.9 Anemia, unspecified; E03.9 Hypothyroidism, unspecified
CPT/HCPCS: 36415; 73560-TC-LT-FY; 73560-TC-RT-FY; 80048; 80053; 82728; 83735; 85025; 85027; 88304-TC; 88311-TC; 94760; 97116-GP; 97162-GP

== ENCOUNTER 2017-09-21 13:13 | Observation (INO) | payer OTHER, BC ==
--- NOTE | 2017-09-21 14:07 | PDOC ---
History of Present Illness - General Chief Complaint: Revisit, Lab Variance Stated Complaint: ANEMIA Time Seen by Provider: 09/21/17 13:17 History Source: Patient Exam Limitations: No Limitations - History of Present Illness Initial Comments: 09/21/17 14:12 72y F hx of DM, HTN, s/p shaheed knee surgery b/l, [facility] with [facility]. The pt states she has been doing ok since dischage, progressing well with her rehab, although she occasionally feels palpitations when she is walking during rehab and feels alittle lightheaded after sitting down. she densi any cp, sob, abd pain, n/v, vision changes, numbness/tingling/weakness, diarrhea, bpr, dysuria, cough. pt denies any increased swelling of her legs. pt does note that during her hositalzation her bp was alittle on ht elow side, her hbg prior to discharge was 9.0 and was at7.0 when check this morning x 2. no prior history of anemia not on a/c Past History - Past Medical History Allergies/Adverse Reactions: Allergies Allergy/AdvReac Type Severity Reaction Status Date / Time adhesive tape Allergy Intermediate Rash Verified 09/21/17 13:18 Penicillins Allergy Intermediate Rash Verified 09/21/17 13:18 Sulfa (Sulfonamide Allergy Intermediate Rash Verified 09/21/17 13:18 Antibiotics) Home Medications: Ambulatory Orders Ascorbic Acid [Vitamin C] 1,000 mg PO DAILY 09/09/17 Cholecalciferol (Vitamin D3) [Vitamin D3] 2,000 unit PO DAILY 09/09/17 Levothyroxine Sodium [Synthroid] 137 mcg PO DAILY 09/09/17 Metoprolol Succinate [Toprol Xl] 50 mg PO DAILY 09/09/17 Multivit-Min/Iron/Folic/Lutein [Centrum Silver Women Tablet] 1 each PO DAILY Simvastatin 20 mg PO HS 09/09/17 Ubidecarenone/Vit E Acet [Co Q-10 100 mg Softgel] 1 each PO DAILY 09/09/17 Acetaminophen [Tylenol .Regular Strength -] 650 mg PO Q6H tablet 09/20/17 Ascorbic Acid [Vitamin C -] 500 mg PO BID tablet 09/20/17 Aspirin [ASA -] 325 mg PO BID #60 tablet 09/20/17 Pantoprazole Sodium [Protonix -] 40 mg PO DAILY #30 tablet.ec 09/20/17 oxyCODONE HCL [Roxicodone -] 5 mg PO Q6H PRN #0 tablet MDD 4 09/20/17 Anemia: No Asthma: No Cancer: Yes (SKIN) Cardiac Disorders: No CVA: No COPD: No CHF: No Dementia: No Diabetes: No GI Disorders: No Disorders: No HTN: Yes Hypercholesterolemia: Yes Liver Disease: No Seizures: No Thyroid Disease: Yes - Surgical History Abdominal Surgery: No Appendectomy: No Cardiac Surgery: No Cholecystectomy: No Lung Surgery: No Neurologic Surgery: No Orthopedic Surgery: No - Suicide/Smoking/Psychosocial Hx Smoking History: Never smoked Have you smoked in the past 12 months: No Information on smoking cessation initiated: No Hx Alcohol Use: No Drug/Substance Use Hx: No Substance Use Type: Alcohol Hx Substance Use Treatment: No Review of Systems - Review of Systems Able to Perform ROS?: Yes Comments:: 09/21/17 14:17 Constitutional - no reported Fever, Chills, HEENT: no reported vision changes, sore throat Respiratory: no reported cough, sob, hemoptysis Cardiac: +palpitations , light headedness, no reported chest pain, leg swelling Abd/GI: no reported abd pain, nausea, vomiting, blood per rectum, melena, diarrhea : no reported dysuria, frequency, discharge Musculskelatal - no reported back pain, joint swelling skin - no reported bruising, erythema, rash neurological: no reported headache, numbness, focal weakness, tingling, ataxia, hematologic: no reported easy bruising, easy bleeding *Physical Exam - Vital Signs Last Vital Signs Temp Pulse Resp BP Pulse Ox 99 F 96 H 20 118/54 99 09/21/17 13:14 09/21/17 13:14 09/21/17 13:14 09/21/17 13:14 09/21/17 13:14 - Physical Exam Comments: 09/21/17 14:18 GENERAL: The patient is awake, alert, and fully oriented, Nontoxic - in no acute distress. HEAD: Normocephalic, atraumatic. EYES: extraocular movements intact, sclera anicteric, conjunctiva clear. ENT: Normal voice, Moist mucous membranes. NECK: Normal range of motion, supple LUNGS: Breath sounds equal, clear to auscultation bilaterally. No wheezes, no rhonchi, no rales. HEART: Regular rate and rhythm, normal S1 and S2 without murmur, rub or gallop. ABDOMEN: Soft, nontender, normoactive bowel sounds. No guarding, no rebound. No CVA tenderness EXTREMITIES: mild edema b/l, mild erythema on medial portions o fknee w/o induration/warmth, + NEUROLOGICAL: No facial assymetry, Normal speech, PSYCH: Normal mood, normal affect. SKIN: Warm, Dry, normal turgor, Heart Score/ECG Review - ECG Impressions Comment:: 09/21/17 17:54 Twelve-lead EKG was performed and reviewed by me. There is normal sinus rhythm with a rate of 103 Q-wave and inverted T-wave in lead 3 Nonspecific T wave changes ED Treatment Course - LABORATORY CBC & Chemistry Diagram: 09/21/17 14:17 09/21/17 14:17 Medical Decision Making - Medical Decision Making 09/21/17 14:19 72y F hx of htn, hl, recent b/l shaheed knee surgery sent from rehab for anemia will recheck her lab work if low will transfuse 09/21/17 15:58 labs reviewed noted for hbg of 7.6 bp stable k low - will replete call put out to dr. licea, awaiting call back will defer transfusion at this time. will place in obs for repeat blood work case dw MENTAL HEALTH NURSE PRACTITIONER darrian will place in obse tele under dr. love service Case discussed in detail with admitting physician including history, physical exam and ancillary studies. Admitting physician has assumed care for the patient, will follow all pending diagnostics and will complete the evaluation and treatment. 09/21/17 16:[address] licea agree with plan, states her hbg is within realm of expectation after b/l shaheed surgery if continues to trend lower will transfuse *DC/Admit/Observation/Transfer Diagnosis at time of Disposition: Hypokalemia Anemia Qualifiers: Anemia type: unspecified type Qualified Code(s): D64.9 - Anemia, unspecified - Discharge Dispostion Condition at time of disposition: Stable Decision to Admit order: Yes - Referrals - Patient Instructions - Post Discharge Activity
[2017-09-21 14:36] LABS: BASO % 0.3 % (0-2.0); EOS % 0.5 % (0-4.5); HEMOGLOBIN 7.6 GM/dl (10.7-15.3); LYMPH % 12.8 % (8-40); MCH 31.9 pg (25.7-33.7); MCHC 34.3 g/dl (32.0-36.0); MEAN CELL VOLUME 93.1 fl (80-96); MEAN PLT VOLUME 7.4 fl (7.5-11.1); MONO % 7.8 % (3.8-10.2); NEUT % 78.6 % (42.8-82.8); PLATELET COUNT 278 K/MM3 (134-434); RBC 2.37 M/mm3 (3.60-5.2); RDW 13.3 % (11.6-15.6); WHITE BLOOD COUNT 6.9 K/mm3 (4.0-10.8)
[2017-09-21 14:40] LABS: ALBUMIN 2.7 g/dl (3.5-5.0); ALK PHOS 49 U/L (32-92); ANION GAP 7 (8-16); BLOOD UREA NITROGEN 24 mg/dl (7-18); CALCIUM 7.5 mg/dl (8.4-10.2); CHLORIDE 99 mmol/L (98-107); CO2 24 mmol/L (22-28); GLUCOSE,RANDOM 122 mg/dl (74-106); INR 1.08 (0.82-1.09); POTASSIUM 3.2 mmol/L (3.5-5.1); PROTHROMBIN TIME (PATIENT) 12.1 SEC (10.2-13.0); SGOT/AST 30 U/L (10-42); SGPT/ALT 17 U/L (10-40); SODIUM 130 mmol/L (136-145); TOT PROT 5.4 g/dl (6.4-8.3)
[2017-09-21 14:45] LABS: BILIRUBIN,TOTAL < 0.5 mg/dl (0.2-1.0)
[2017-09-21] MEDS ORDERED: POTASSIUM CHLORIDE TABS 20 MEQ TABLET.ER (FP) PO ONE ×2 (15:57→17:18)
[2017-09-21 18:44] VITALS: BMI 35.7
[2017-09-21] MEDS: ACETAMINOPHEN 325 MG TABLET (FP) PO SCH (21:40)
[2017-09-21] MEDS ORDERED: ASPIRIN 325 MG TABLET PO SCH (22:00)
[2017-09-21] MEDS ORDERED: ATORVASTATIN CA 10 MG TABLET (FP) PO SCH (22:00)
--- NOTE | 2017-09-21 23:17 | HP ---
CHIEF COMPLAINT: low Hgb PCP: [facility] HISTORY OF PRESENT ILLNESS: This is a 72 year old female with a past medical history of HTN, Shaheed B/L knee surgery 09/17/17 who was DC to [facility] yesterday and sent back today for low H/H. Hgb 7.0 at [facility]. Pt reports dizziness upon sitting after walking with PT today. No further episodes of dizziness since arrival in ED. Pt reports she has not had a BM since surgery. ER course was notable for: (1) Hgb 7.6 Recent Travel: pt denies PAST MEDICAL HISTORY: HTN, HLD, skin CA, hypothyroidism PAST SURGICAL HISTORY: B/L shaheed knee replacement 09/17/17 Mohs L ear, L forehead thyroidectomy Social History: Smoking: pt denies Alcohol: a few drinks 2 x /week Drugs: pt denies Family History: mother deceassed age 91, h/o OA, HTN father 80s, colon CA brother age 29, Hodkins lymphoma brother alive with HTN Allergies adhesive tape Allergy (Intermediate, Verified 09/21/17 13:18) Rash Penicillins Allergy (Intermediate, Verified 09/21/17 13:18) Rash Sulfa (Sulfonamide Antibiotics) Allergy (Intermediate, Verified 09/21/17 13:18) Rash HOME MEDICATIONS: 3 Medication Instructions Recorded Ascorbic Acid [Vitamin C] 1,000 mg PO DAILY 09/09/17 Cholecalciferol (Vitamin D3) 2,000 unit PO DAILY 09/09/17 [Vitamin D3] Levothyroxine Sodium [Synthroid] 137 mcg PO DAILY 09/09/17 Metoprolol Succinate [Toprol Xl] 50 mg PO DAILY 09/09/17 Multivit-Min/Iron/Folic/Lutein 1 each PO DAILY 09/09/17 [Centrum Silver Women Tablet] Simvastatin 20 mg PO HS 09/09/17 Ubidecarenone/Vit E Acet [Co Q-10 1 each PO DAILY 09/09/17 100 mg Softgel] Acetaminophen [Tylenol .Regular 650 mg PO Q6H tablet 09/20/17 Strength -] Ascorbic Acid [Vitamin C -] 500 mg PO BID tablet 09/20/17 Aspirin [ASA -] 325 mg PO BID #60 tablet 09/20/17 Pantoprazole Sodium [Protonix -] 40 mg PO DAILY #30 tablet.ec 09/20/17 oxyCODONE HCL [Roxicodone -] 5 mg PO Q6H PRN #0 tablet MDD 4 09/20/17 REVIEW OF SYSTEMS CONSTITUTIONAL: Absent: fever, chills, diaphoresis, generalized weakness, malaise, loss of appetite, weight change HEENT: Absent: rhinorrhea, nasal congestion, throat pain, throat swelling, difficulty swallowing, mouth swelling, ear pain, eye pain, visual changes CARDIOVASCULAR: Absent: chest pain, syncope, palpitations, irregular heart rate, lightheadedness , peripheral edema RESPIRATORY: Absent: cough, shortness of breath, dyspnea with exertion, orthopnea, wheezing, stridor, hemoptysis GASTROINTESTINAL: Absent: abdominal pain, abdominal distension, nausea, vomiting, diarrhea, constipation, melena, hematochezia GENITOURINARY: Absent: dysuria, frequency, urgency, hesitancy, hematuria, flank pain, genital pain MUSCULOSKELETAL: Absent: myalgia, arthralgia, joint swelling, back pain, neck pain SKIN: Absent: rash, itching, pallor HEMATOLOGIC/IMMUNOLOGIC: Absent: easy bleeding, easy bruising, lymphadenopathy, frequent infections ENDOCRINE: Absent: unexplained weight gain, unexplained weight loss, heat intolerance, cold intolerance NEUROLOGIC: Present: dizziness Absent: headache, focal weakness or paresthesias, unsteady gait, seizure, mental status changes, bladder or bowel incontinence PSYCHIATRIC: Absent: anxiety, depression, suicidal or homicidal ideation, hallucinations. PHYSICAL EXAMINATION Vital Signs - 24 hr 3 09/21/17 09/21/17 13:14 18:39 Temperature 99 F 98.8 F Pulse Rate 96 H 101 H Respiratory 20 20 Rate Blood Pressure 118/54 123/56 O2 Sat by Pulse 99 Oximetry (%) GENERAL: Awake, alert, and fully oriented, in no acute distress. HEAD: Normal with no signs of trauma. EYES: Pupils equal, round and reactive to light, extraocular movements intact, sclera anicteric, conjunctiva clear, pale. No lid lag. EARS, NOSE, THROAT: Ears normal, nares patent, oropharynx clear without exudates. Moist mucous membranes. NECK: Normal range of motion, supple without lymphadenopathy, JVD, or masses. LUNGS: Breath sounds equal, clear to auscultation bilaterally. No wheezes, and no crackles. No accessory muscle use. HEART: Regular rate and rhythm, normal S1 and S2 without murmur, rub or gallop. ABDOMEN: Soft, nontender, not distended, normoactive bowel sounds, no guarding, no rebound, no masses. No hepatomegaly or splenomegaly. MUSCULOSKELETAL: Normal range of motion at all joints. No bony deformities or tenderness. No CVA tenderness. B/L knees with aquacell dressing intact UPPER EXTREMITIES: 2+ pulses, warm, well-perfused. No cyanosis. No clubbing. No peripheral edema. LOWER EXTREMITIES: 2+ pulses, warm, well-perfused. No calf tenderness. No peripheral edema. NEUROLOGICAL: Cranial nerves II-XII intact. Normal speech. Normal gait. PSYCHIATRIC: Cooperative. Good eye contact. Appropriate mood and affect. SKIN: Warm, dry, normal turgor, no rashes or lesions noted, normal capillary refill. Laboratory Results - last 24 hr 3 09/21/17 09/21/17 09/21/17 14:17 14:17 14:17 WBC 6.9 RBC 2.37 L Hgb 7.6 L D Hct 22.0 L D MCV 93.1 MCH 31.9 MCHC 34.3 RDW 13.3 Plt Count 278 MPV 7.4 L Absolute Neuts (auto) 5.5 Neutrophils % 78.6 Lymphocytes % 12.8 Monocytes % 7.8 Eosinophils % 0.5 Basophils % 0.3 PT with INR 12.1 INR 1.08 Sodium 130 L Potassium 3.2 L Chloride 99 Carbon Dioxide 24 Anion Gap 7 L BUN 24 H Creatinine 1.0 Creat Clearance w eGFR 54.35 Random Glucose 122 H Calcium 7.5 L Total Bilirubin < 0.5 AST 30 D ALT 17 D Alkaline Phosphatase 49 Total Protein 5.4 L Albumin 2.7 L Blood Type O POSITIVE Antibody Screen Negative ECG sinus tachycardia vent rate 103, QTC [address]/T changes no old ECG available for comparison ASSESSMENT/PLAN: 72yF with PMH HTN, HLD, skin CA, hypothyroidism, B/L shaheed TKR 09/17/17 presented to the ED for Hgb 7.0. anemia - repeat Hgb here7.6. will not transfuse at this time - repeat CBC 11pm, 6am - transfuse if less than 7 hyponatremia - was restarted on HCTZ at [facility], will hold - repeat BMP in am HTN - pt reports her BP was low at the [facility] - cont toprol, hold if SBP less than 100 - hold lisinopril HCTZ HLD - cont home simvastatin hypothyroid - cont home synthroid DVT PPX - defer heparin, anticipated LOS < 48h FEN - tolerating po - BMP in am - regular diet as tolerated Dispo: pt currently requires further observation for management of her emergent condition. Hospitalist Screening - Colonoscopy Questionnaire Colonoscopy Questionnaire: Colonoscopy Questionnaire
[2017-09-21 23:19] LABS: BASO % 0.4 % (0-2.0); EOS % 1.2 % (0-4.5); HEMATOCRIT 21.5 % (32.4-45.2); HEMOGLOBIN 7.4 GM/dl (10.7-15.3); LYMPH % 19.5 % (8-40); MCH 32.2 pg (25.7-33.7); MCHC 34.6 g/dl (32.0-36.0); MEAN CELL VOLUME 92.9 fl (80-96); MEAN PLT VOLUME 7.5 fl (7.5-11.1); MONO % 10.1 % (3.8-10.2); NEUT % 68.8 % (42.8-82.8); PLATELET COUNT 267 K/MM3 (134-434); RBC 2.31 M/mm3 (3.60-5.2); RDW 13.2 % (11.6-15.6); WHITE BLOOD COUNT 6.3 K/mm3 (4.0-10.8)
[2017-09-21] MEDS ORDERED: MAGNESIUM HYDROX 2400MG/30ML ORAL SUSPENSION 30 ML CUP PO PRN (23:25)
[2017-09-21] MEDS: oxyCODONE HCL 5 MG TABLET PO PRN (23:56)
[2017-09-22] MEDS: ACETAMINOPHEN 325 MG TABLET (FP) PO SCH ×3 (02:00→13:20)
[2017-09-22] MEDS ORDERED: LEVOTHYROXINE NA 25 MCG TABLET (FP) ONE (06:37)
[2017-09-22] MEDS ORDERED: LEVOTHYROXINE NA 112 MCG TABLET (FP) ONE (06:37)
[2017-09-22] MEDS ORDERED: LEVOTHYROXINE 25 MCG, LEVOTHYROXINE 112 MCG PO SCH (07:00)
--- NOTE | 2017-09-22 08:17 | PN ---
Physical Exam: SUBJECTIVE: Patient seen and examined OBJECTIVE: Vital Signs Period Temp Pulse Resp BP Sys/Machuca Pulse Ox Last 24 Hr 98.5 F-99.1 F 88-101 18-20 114-124/49-64 97-99 GENERAL: The patient is awake, alert, and fully oriented, in no acute distress. HEAD: Normal with no signs of trauma. EYES: PERRL, extraocular movements intact, sclera anicteric, conjunctiva clear. No ptosis. ENT: Ears normal, nares patent, oropharynx clear without exudates, moist mucous membranes. NECK: Trachea midline, full range of motion, supple. LUNGS: Breath sounds equal, clear to auscultation bilaterally, no wheezes, no crackles, no accessory muscle use. HEART: Regular rate and rhythm, S1, S2 without murmur, rub or gallop. ABDOMEN: Soft, nontender, nondistended, normoactive bowel sounds, no guarding, no rebound, no hepatosplenomegaly, no masses. EXTREMITIES: 2+ pulses, warm, well-perfused, no edema. NEUROLOGICAL: Cranial nerves II through XII grossly intact. Normal speech, gait not observed. PSYCH: Normal mood, normal affect. SKIN: Warm, dry, normal turgor, no rashes or lesions noted Laboratory Results - last 24 hr 09/21/17 09/21/17 09/21/17 14:17 14:17 14:17 WBC 6.9 RBC 2.37 L Hgb 7.6 L D Hct 22.0 L D MCV 93.1 MCH 31.9 MCHC 34.3 RDW 13.3 Plt Count 278 MPV 7.4 L Absolute Neuts (auto) 5.5 Neutrophils % 78.6 Lymphocytes % 12.8 Monocytes % 7.8 Eosinophils % 0.5 Basophils % 0.3 PT with INR INR Sodium 130 L Potassium 3.2 L Chloride 99 Carbon Dioxide 24 Anion Gap 7 L BUN 24 H Creatinine 1.0 Creat Clearance w eGFR 54.35 Random Glucose 122 H Calcium 7.5 L Total Bilirubin < 0.5 AST 30 D ALT 17 D Alkaline Phosphatase 49 Total Protein 5.4 L Albumin 2.7 L Blood Type O POSITIVE Antibody Screen Negative 09/21/17 09/21/17 09/21/17 14:17 14:25 22:55 WBC 6.3 RBC 2.31 L Hgb 7.4 L Hct 21.5 L MCV 92.9 MCH 32.2 MCHC 34.6 RDW 13.2 Plt Count 267 MPV 7.5 Absolute Neuts (auto) 4.4 Neutrophils % 68.8 Lymphocytes % 19.5 Monocytes % 10.1 Eosinophils % 1.2 Basophils % 0.4 PT with INR 12.1 INR 1.08 Sodium Potassium Chloride Carbon Dioxide Anion Gap BUN Creatinine Creat Clearance w eGFR Random Glucose Calcium Total Bilirubin AST ALT Alkaline Phosphatase Total Protein Albumin Blood Type O POSITIVE Antibody Screen Active Medications Generic Name Dose Route Start Last Admin Trade Name Freq PRN Reason Stop Dose Admin Acetaminophen 650 mg 09/21/17 19:30 09/22/17 06:39 Tylenol - PO 650 mg Q6H [facility] Administration Ascorbic Acid 1,000 mg 09/22/17 10:00 Vitamin C - PO DAILY [facility] Aspirin 325 mg 09/21/17 22:00 09/21/17 21:40 Asa - PO 325 mg BID [facility] Administration Atorvastatin Calcium 10 mg 09/21/17 22:00 09/21/17 21:40 Lipitor - PO 10 mg HS [facility] Administration Cholecalciferol 2,000 unit 09/22/17 10:00 Vitamin D3 - PO DAILY [facility] Levothyroxine Sodium 25 mcg/ 137 mcg 09/22/17 07:00 09/22/17 06:39 Levothyroxine Sodium 112 mcg PO 137 mcg DAILY@0700 [facility] Administration Magnesium Hydroxide 30 ml 09/21/17 23:25 Milk Of Magnesia - PO TID PRN CONSTIPATION Metoprolol Succinate 50 mg 09/22/17 10:00 Toprol Xl - PO DAILY [facility] Multivitamins/Minerals 1 each 09/22/17 10:00 Theragran-M PO DAILY [facility] Oxycodone HCl 5 mg 09/21/17 19:20 09/21/17 23:56 Roxicodone - PO 5 mg Q6H PRN Administration PAIN LEVEL 7 - 10 Pantoprazole Sodium 40 mg 09/22/17 10:00 Protonix - PO DAILY [facility] ASSESSMENT/PLAN:
[2017-09-22 09:41] LABS: HEMATOCRIT 22.6 % (32.4-45.2); HEMOGLOBIN 7.8 GM/dl (10.7-15.3); MCH 32.2 pg (25.7-33.7); MCHC 34.4 g/dl (32.0-36.0); MEAN CELL VOLUME 93.5 fl (80-96); MEAN PLT VOLUME 6.8 fl (7.5-11.1); PLATELET COUNT 290 K/MM3 (134-434); RBC 2.42 M/mm3 (3.60-5.2); RDW 13.3 % (11.6-15.6); WHITE BLOOD COUNT 6.5 K/mm3 (4.0-10.8)
[2017-09-22 09:54] LABS: ANION GAP 6 (8-16); BLOOD UREA NITROGEN 20 mg/dl (7-18); CALCIUM 8.1 mg/dl (8.4-10.2); CHLORIDE 103 mmol/L (98-107); CO2 26 mmol/L (22-28); CREATININE 0.8 mg/dl (0.6-1.3); GLUCOSE,RANDOM 159 mg/dl (74-106); MAGNESIUM 2.2 mg/dL (1.8-2.4); PHOSPHOROUS 3.2 mg/dl (2.5-4.6); POTASSIUM 3.9 mmol/L (3.5-5.1); SODIUM 135 mmol/L (136-145)
[2017-09-22] MEDS ORDERED: PATIENT'S OWN MEDICATION (NON-FORMULARY) (Levothyroxine Sodium [Synthroid] 137 MCG) PO SCH (10:00)
[2017-09-22] MEDS ORDERED: CHOLECALCIFEROL (VITAMIN D3) 1,000 UNIT TABLET (FP) PO SCH (10:00)
[2017-09-22] MEDS ORDERED: PANTOPRAZOLE 40 MG TABLET (FP) PO SCH (10:00)
[2017-09-22] MEDS ORDERED: MULTIVITAMINS THER W-MINERALS COMBO TABLET (FP) PO SCH (10:00)
[2017-09-22] MEDS ORDERED: ASCORBIC ACID 500 MG TABLET (FP) PO SCH (10:00)
[2017-09-22] MEDS ORDERED: PATIENT'S OWN MEDICATION (NON-FORMULARY) (Ubidecarenone/Vit E Acet [Co Q-10 100 Mg Softgel PO SCH (10:00)
--- NOTE | 2017-09-22 10:00 | EKG ---
Test Reason : Blood Pressure : / mmHG Vent. Rate : 103 BPM Atrial Rate : 103 BPM P-R Int : 134 ms QRS Dur : 098 ms QT Int : 358 ms P-R-T Axes : 033 021 003 degrees QTc Int : 468 ms SINUS TACHYCARDIA NONSPECIFIC ST AND T WAVE ABNORMALITY ABNORMAL ECG NO PREVIOUS ECGS AVAILABLE Confirmed by ALON GARCIA MD ([id number]) on 09/22/2017 9:59:58 AM Referred By: DR TOLDEO Confirmed By:ALON GARCIA MD
[2017-09-22] MEDS: oxyCODONE HCL 5 MG TABLET PO PRN (11:05)
--- NOTE | 2017-09-22 12:26 | DS ---
Physical Exam: SUBJECTIVE: Patient seen and examined, patient is sitting in bedside recliner reports feeling well, denies any dizziness, chest pain or shortness of breath. OBJECTIVE:This is a 72 year old female with a past medical history of HTN, Bo B/L knee surgery 09/17/17 who was DC to [facility] yesterday and sent back today for low H/H. Hgb 7.0 at [facility]. Pt reports dizziness upon sitting after walking with PT today. No further episodes of dizziness since arrival in ED. Pt reports she has not had a BM since surgery. ER course was notable for: (1) Hgb 7.6 Vital Signs Period Temp Pulse Resp BP Sys/Machuca Pulse Ox Last 24 Hr 98.4 F-99.1 F 88-101 18-20 114-134/49-64 97-99 PHYSICAL EXAM GENERAL: The patient is awake, alert, and fully oriented, in no acute distress. HEAD: Normal with no signs of trauma. EYES: PERRL, extraocular movements intact, sclera anicteric, conjunctiva clear. ENT: Ears normal, nares patent, oropharynx clear without exudates, moist mucous membranes. NECK: Trachea midline, full range of motion, supple. LUNGS: Breath sounds equal, clear to auscultation bilaterally, no wheezes, no crackles, no accessory muscle use. HEART: Regular rate and rhythm, S1, S2 without murmur, rub or gallop. ABDOMEN: Soft, nontender, nondistended, normoactive bowel sounds, no guarding, no rebound, no hepatosplenomegaly, no masses. EXTREMITIES: 2+ pulses, warm, well-perfused, no edema. RIGHT LOWER EXTREMITY: aguacel dressing removed, by orthopedistDr Huddleston surgical site well approximated no erythema, dried blood noted, less than 3 second cappillary refill, + 3 pedal pulse, wound cleaned with betadine LEFT LOWER EXTREMITY: aguacel dressing removed by orthopedist, Dr Huddleston, surgical site well approximated, no erythema, dried blood noted, no drainage less than 3 second capillary refill, + pedal pulse, wound cleansed with betadine NEUROLOGICAL: Cranial nerves II through XII grossly intact. Normal speech, gait not observed. PSYCH: Normal mood, normal affect. SKIN: Warm, dry, normal turgor, no rashes or lesions noted. LABS Laboratory Results - last 24 hr 09/21/17 09/21/17 09/21/17 14:17 14:17 14:17 WBC 6.9 RBC 2.37 L Hgb 7.6 L D Hct 22.0 L D MCV 93.1 MCH 31.9 MCHC 34.3 RDW 13.3 Plt Count 278 MPV 7.4 L Absolute Neuts (auto) 5.5 Neutrophils % 78.6 Lymphocytes % 12.8 Monocytes % 7.8 Eosinophils % 0.5 Basophils % 0.3 PT with INR INR Sodium 130 L Potassium 3.2 L Chloride 99 Carbon Dioxide 24 Anion Gap 7 L BUN 24 H Creatinine 1.0 Creat Clearance w eGFR 54.35 Random Glucose 122 H Calcium 7.5 L Phosphorus Magnesium Total Bilirubin < 0.5 AST 30 D ALT 17 D Alkaline Phosphatase 49 Total Protein 5.4 L Albumin 2.7 L Blood Type O POSITIVE Antibody Screen Negative 09/21/17 09/21/17 09/21/17 14:17 14:25 22:55 WBC 6.3 RBC 2.31 L Hgb 7.4 L Hct 21.5 L MCV 92.9 MCH 32.2 MCHC 34.6 RDW 13.2 Plt Count 267 MPV 7.5 Absolute Neuts (auto) 4.4 Neutrophils % 68.8 Lymphocytes % 19.5 Monocytes % 10.1 Eosinophils % 1.2 Basophils % 0.4 PT with INR 12.1 INR 1.08 Sodium Potassium Chloride Carbon Dioxide Anion Gap BUN Creatinine Creat Clearance w eGFR Random Glucose Calcium Phosphorus Magnesium Total Bilirubin AST ALT Alkaline Phosphatase Total Protein Albumin Blood Type O POSITIVE Antibody Screen 09/22/17 09/22/17 09:30 09:30 WBC 6.5 RBC 2.42 L Hgb 7.8 L Hct 22.6 L MCV 93.5 MCH 32.2 MCHC 34.4 RDW 13.3 Plt Count 290 MPV 6.8 L Absolute Neuts (auto) Neutrophils % Lymphocytes % Monocytes % Eosinophils % Basophils % PT with INR INR Sodium 135 L Potassium 3.9 D Chloride 103 Carbon Dioxide 26 Anion Gap 6 L BUN 20 H Creatinine 0.8 Creat Clearance w eGFR Random Glucose 159 H D Calcium 8.1 L Phosphorus 3.2 Magnesium 2.2 Total Bilirubin AST ALT Alkaline Phosphatase Total Protein Albumin Blood Type Antibody Screen HOSPITAL COURSE: 1) post operative anemia. Repeat Hgb 7.8, discussed, patient is asymptomatic, discussed with Dr Huddleston, will not transfuse at this time. 2) hyponatremia, likely secondary to HCTZ, continue to hold, serum sodium improved. 3) HTN, blood pressure remained at goal, continue toprol and lisinopril. hold hctz due to hyponatremia. 4) hypothyroid cont home synthroid PLAN - discharge to short term rehab - continue to hold hctz, repeat hgb and bmp in 5 days Date of Admission:09/21/17 Date of Discharge: 09/22/17 Discharge Summary Reason For Visit: ANEMIA/HYPOKALEMIA Current Active Problems Anemia (Acute) Hypokalemia (Acute) Condition: Stable - Instructions - Home Medications Comprehensive Discharge Medication List: Ambulatory Orders Ascorbic Acid [Vitamin C] 1,000 mg PO DAILY 09/09/17 Cholecalciferol (Vitamin D3) [Vitamin D3] 2,000 unit PO DAILY 09/09/17 Levothyroxine Sodium [Synthroid] 137 mcg PO DAILY 09/09/17 Metoprolol Succinate [Toprol Xl] 50 mg PO DAILY 09/09/17 Multivit-Min/Iron/Folic/Lutein [Centrum Silver Women Tablet] 1 each PO DAILY Simvastatin 20 mg PO HS 09/09/17 Ubidecarenone/Vit E Acet [Co Q-10 100 mg Softgel] 1 each PO DAILY 09/09/17 Acetaminophen [Tylenol .Regular Strength -] 650 mg PO Q6H tablet 09/20/17 Ascorbic Acid [Vitamin C -] 500 mg PO BID tablet 09/20/17 Aspirin [ASA -] 325 mg PO BID #60 tablet 09/20/17 Pantoprazole Sodium [Protonix -] 40 mg PO DAILY #30 tablet.ec 09/20/17 oxyCODONE HCL [Roxicodone -] 5 mg PO Q6H PRN #0 tablet MDD 4 09/20/17
[2017-09-22 14:15] VITALS: BP 131/61; PULSE 104; TEMP 98.9
[2017-09-22] MEDS ORDERED: ASPIRIN 325 MG TABLET PO SCH (22:00)
== END 2017-09-22 14:40 ==
LOC: FER 13:13 → FM/S 16:00
PROVIDERS: ADMIT Hospitalist; ATTEND Nurse Practitioner Family
DX: D64.89 Other specified anemias (principal); E87.6 Hypokalemia; I10 Essential (primary) hypertension; E78.5 Hyperlipidemia, unspecified; E03.9 Hypothyroidism, unspecified; Z85.828 Personal history of other malignant neoplasm of skin; Z96.653 Presence of artificial knee joint, bilateral; E87.1 Hypo-osmolality and hyponatremia
CPT/HCPCS: 36415; 71045-TC-FY; 80048; 80053; 83735; 84100; 85025; 85027; 85610; 86850; 86900; 86901; 93005; 99283-25; G0378